=== PATIENT | female | born 1960 | race Caucasian/White ===

== ENCOUNTER 2018-11-18 17:18 | Emergency (ER) | payer OTHER ==
--- NOTE | 2018-11-18 18:51 | ED ---
Respiratory - HPI Summary HPI Summary: Patient complains of cough symptoms 1 week with one episode of small bright red blood in phlegm after coughing tonight. Has coughed since with no further blood. Patient called her PCP who advised her to come to the ED for further evaluation. Denies SADLER, fever, sore throat, CP, SOB, N/V/D, abdomen pain, change in urine, change in BM. Medical history is none. No antipyretics taken today. No anti-coag. - History of Current Complaint Chief Complaint: EDGeneral Stated Complaint: COUGHED UP BLOOD Time Seen by Provider: 11/18/18 17:49 Hx Obtained From: Patient Onset/Duration: Other Current Severity: None Pain Intensity: 0 Character: Cough (Productive) Sputum Amount: Moderate Sputum Color: Clear, Red Specks, Small Clots Aggravating Factor(s): Nothing Alleviating Factor(s): Nothing Associated Signs and Symptoms: Negative - Allergy/Home Medications Allergies/Adverse Reactions: Allergies Allergy/AdvReac Type Severity Reaction Status Date / Time hydromorphone [From Dilaudid] Allergy Hallucinati Verified 11/18/18 17:28 ons morphine Allergy Hallucinati Verified 11/18/18 17:28 ons Penicillins Allergy Rash Verified 11/18/18 17:28 Sulfa (Sulfonamide Allergy Rash Verified 11/18/18 17:28 Antibiotics) PMH/Surg Hx/FS Hx/Imm Hx Endocrine/Hematology History: Denies: Hx Anticoagulant Therapy Cardiovascular History: Denies: Hx Cardiac Arrest History: Denies: Hx Dialysis Sensory History: Denies: Hx Eye Prosthesis Neurological History: Denies: Hx Developmental Delay Psychiatric History: Denies: Hx Autism Infectious Disease History: No Infectious Disease History: Denies: Traveled Outside the [place] in Last 30 Days - Family History Known Family History: Positive: Non-Contributory - Social History Alcohol Use: Weekly Substance Use Type: Reports: None Smoking Status (MU): Unknown if Ever Smoked Review of Systems Constitutional: Negative Eyes: Negative ENT: Negative Cardiovascular: Negative Positive: Cough Gastrointestinal: Negative Genitourinary: Negative Musculoskeletal: Negative Skin: Negative Neurological: Negative Psychological: Normal All Other Systems Reviewed And Are Negative: Yes Physical Exam - Summary Physical Exam Summary: ENT exam unremarkable. ENT exam unremarkable. No active cough here in the ED. Triage Information Reviewed: Yes Vital Signs On Initial Exam: Initial Vitals Temp Pulse Resp BP Pulse Ox 97.9 F 102 16 150/96 99 11/18/18 17:22 11/18/18 17:22 11/18/18 17:22 11/18/18 17:22 11/18/18 17:22 Vital Signs Reviewed: Yes Appearance: Positive: Well-Appearing Skin: Positive: Warm Head/Face: Positive: Normal Head/Face Inspection Eyes: Positive: Normal ENT: Positive: Normal ENT inspection Neck: Positive: Supple Respiratory/Lung Sounds: Positive: Clear to Auscultation Cardiovascular: Positive: Normal Abdomen Description: Positive: Nontender Musculoskeletal: Positive: Normal Neurological: Positive: Normal Psychiatric: Positive: Normal AVPU Assessment: Alert - [place] Coma Scale Best Eye Response: 4 - Spontaneous Best Motor Response: 6 - Obeys Commands Best Verbal Response: 5 - Oriented Coma Scale Total: 15 Diagnostics - Vital Signs Vital Signs Temp Pulse Resp BP Pulse Ox 11/18/18 17:22 97.9 F 102 16 150/96 99 - Laboratory Lab Statement: Any lab studies that have been ordered have been reviewed, and results considered in the medical decision making process. Disposition - Course Course Of Treatment: Patient complains of cough symptoms 1 week with one episode of small bright red blood in phlegm after coughing tonight. Has coughed since with no further blood. Patient called her PCP who advised her to come to the ED for further evaluation. Denies SADLER, fever, sore throat, CP, SOB, N/V/D, abdomen pain, change in urine, change in BM. Medical history is none. No antipyretics taken today. No anti-coag. Physical exam:ENT exam unremarkable. ENT exam unremarkable. No active cough here in the ED. Vital signs within normal limits. Chest x-ray unremarkable. No active cough here in ED. Only one episode of small blood clots. Likely irritation of pharyngeal tissues due to cough. Rx for Tessalon Perles. - Diagnoses Provider Diagnoses: Cough Discharge - Sign-Out/Discharge Documenting (check all that apply): Patient Departure - Discharge Plan Condition: Stable Disposition: HOME Prescriptions: Benzonatate CAP* [Tessalon 100 MG CAP*] 200 mg PO TID PRN 5 Days #30 cap PRN Reason: Cough Patient Education Materials: Upper Respiratory Infection (ED) Referrals: Pipo Fuentes MD [Primary Care Provider] - Additional Instructions: Take cough medicine as prescribed. Follow-up with primary care. Return to the ED for any new or worsening symptoms. - Billing Disposition and Condition Condition: STABLE Disposition: Home
[2018-11-18] MEDS ORDERED: Benzonatate CAP* 100 MG PO ONE (18:53)
[2018-11-18 19:37] VITALS: BP 149/88
== END 2018-11-18 19:04 | disposition home or self-care (01) ==
LOC: ED 17:18
DX: R05 Cough (principal); Z88.0 Allergy status to penicillin; Z88.2 Allergy status to sulfonamides
CPT/HCPCS: 71046; 99284; A9270-GY

== ENCOUNTER 2019-04-04 07:07 | Emergency (ER) | payer OTHER ==
[2019-04-04] MEDS ORDERED: Lidocaine 1% MPF wEPI 200,000* 30 ML SDV INJ ONE (07:34)
--- NOTE | 2019-04-04 08:00 | UC ---
Skin Complaint HPI - HPI Summary HPI Summary: Pt is 58 y/o female with foreign body in left parietal scalp since yesterday morning. She states she was gardening when a hawthorn branch hit her in the head. She attempted to remove the thorn on her own but believes it broke off in her scalp and there may be a small piece remaining. No other complaints at this time. No fever, chills, signs of infection. Patient states tetanus immunization is not up to date. Patient smokes 1 PPD. - History of Current Complaint Chief Complaint: UCForeignBody Time Seen by Provider: 04/04/19 07:15 Stated Complaint: SOFT TISSUE Hx Obtained From: Patient Onset/Duration: Sudden Onset Skin Exposure Onset/Duration: Days Ago Onset Severity: Mild Current Severity: Mild Pain Intensity: 0 Pain Scale Used: 0-10 Numeric Location: Discrete - Left parietal scalp. Aggravating Factor(s): Nothing Alleviating Factor(s): Nothing Associated Signs & Symptoms: Negative: Fever, Chills, Tenderness, Red Streaks Related History: Foreign Body - [place] - Allergy/Home Medications Allergies/Adverse Reactions: Allergies Allergy/AdvReac Type Severity Reaction Status Date / Time hydromorphone [From Dilaudid] Allergy Hallucinati Verified 04/04/19 07:13 ons morphine Allergy Hallucinati Verified 04/04/19 07:13 ons Penicillins Allergy Rash Verified 04/04/19 07:13 Sulfa (Sulfonamide Allergy Rash Verified 04/04/19 07:13 Antibiotics) Home Medications: Home Medications NK [No Home Medications Reported] 04/04/19 [History Confirmed 04/04/19] PMH/Surg Hx/FS Hx/Imm Hx Previously Healthy: Yes Other History Of: Negative For: Anticoagulant Therapy - Surgical History Surgical History: None - Family History Known Family History: Positive: Non-Contributory - Social History Alcohol Use: Occasionally Substance Use Type: Marijuana Substance Use Comment - Amount & Last Used: occasional Smoking Status (MU): Current Every Day Smoker Type: Cigarettes Amount Used/How Often: 1 PPD Review of Systems All Other Systems Reviewed And Are Negative: Yes Constitutional: Negative: Fever, Chills Skin: Positive: Other - Foreign body, left parietal scalp. Minimal pain. Eyes: Positive: Negative ENT: Positive: Negative Respiratory: Negative: Shortness Of Breath Cardiovascular: Negative: Palpitations Genitourinary: Positive: Negative Motor: Positive: Negative Neurovascular: Positive: Negative Musculoskeletal: Positive: Negative Neurological: Positive: Headache Physical Exam Triage Information Reviewed: Yes Appearance: Well-Appearing, No Pain Distress Vital Signs: Initial Vital Signs Temp 97.8 F 04/04/19 07:13 Pulse 75 04/04/19 07:13 Resp 16 04/04/19 07:13 BP 137/76 04/04/19 07:13 Pulse Ox 99 04/04/19 07:13 Vital Signs Reviewed: Yes Eyes: Positive: Conjunctiva Clear ENT: Positive: Normal ENT inspection Neck exam: Normal Respiratory: Positive: Lungs clear Cardiovascular: Positive: RRR, No Murmur Abdomen Description: Negative: Distended Musculoskeletal Exam: Normal Neurological Exam: Normal Psychological Exam: Normal Skin: Positive: Other - Pinpoint area of scabbing to left parietal scalp. No FB visualized. Procedures - Procedure Summary Procedure Summary: Foreign body removal @ 0750: Left parietal scalp surrounding pinpoint area of scabbing injected with 2 cc 1% lidocaine with epi. Sensation tested prior to procedure. 0.5 cm incision made with #11 blade. Wound probed for foreign body. No foreign body visualized. Performed by PA student Shukri Reyes and Dr. Israel supervising attending. Hemostasis achieved with pressure x 1 minute. Tolerated well without complications. Course/Dx - Course Course Of Treatment: 58 y/o otherwise healthy female with foreign body to left parietal scalp, unable to visualize or remove foreign body with minor incision. Received tetanus immunization. Discussed signs of infection to monitor for and at-home treatment options. Pt to f/u with PCP Pt seen in collaboration with PA student. Hx/PE/and MDM by mn. I was present throughout the procedure. No FB was identified. No evidence for infection. - Differential Diagnoses - Skin Complaint Differential Diagnoses: Foreign Body - thorn - Diagnoses Provider Diagnosis: Foreign body (FB) in soft tissue Discharge - Sign-Out/Discharge Documenting (check all that apply): Patient Departure All imaging exams completed and their final reports reviewed: No - Discharge Plan Condition: Improved Disposition: HOME Patient Education Materials: Soft Tissue Foreign Body (ED) Referrals: Pipo Fuentes MD [Primary Care Provider] - Additional Instructions: Leave the wound alone today. Tomorrow if there are still feels to be a foreign body in the scalp then use a black drawing salve to help remove the foreign body. Return with drainage of pus from the wound, redness, increased soreness, worse or other concerns. Follow-up with your doctor as needed. - Billing Disposition and Condition Condition: IMPROVED Disposition: Home - Attestation Statements Document Initiated by Ruth Ann: Yes Documenting Scribe: CAROL Golden Provider For Whom Scribdarby is Documenting (Include Credential): Dr. Israel Scribe Attestation: IShukri PA-S, scribed for Dr. Israel on 04/04/19 at 0834. Scribe Documentation Reviewed: Yes Provider Attestation: The documentation as recorded by the ruth ann, CAROL Golden accurately reflects the service I personally performed and the decisions made by Dr. Lindy emmanuel Status of Scribe Document: Viewed
[2019-04-04 08:03] VITALS: BP 137/76
[2019-04-04] MEDS ORDERED: Tetan/Diph/Pertus SYR(Tdap)* 0.5 ML SYR(BOOSTRIX) use SYR IM ONE (08:11)
== END 2019-04-04 08:20 | disposition home or self-care (01) ==
LOC: UCEAST 07:07
DX: M79.5 Residual foreign body in soft tissue (principal); Z88.5 Allergy status to narcotic agent; Z88.0 Allergy status to penicillin; Z88.2 Allergy status to sulfonamides
CPT/HCPCS: 10120; 90471; 90715; 99211; G0463; J2001